=== PATIENT | male | born 1960 | race Caucasian/White ===

== ENCOUNTER → 2019-01-20 | Day surgery (SDC) | payer BC ==
[~2019-01-20] MED LIST: Buffered Lidocaine 1% SYRIN* 1 ML/SYRINGE INTRADERM ONE; Bupivacaine 0.25% SDV PF* 10 ML VIAL INJ ONE; Dexamethasone IV* 4 MG/ML 1 ML (4 MG) IV SLOW PU ONE; Dexamethasone IV* 4 MG/ML 1 ML (4 MG) ONE; DiMENhydriNATE IV* 50 MG/ML VIAL IV PUSH PRN; EPHEDrine (Pressors)* 50 MG/ML VIAL ONE; Famotidine IV* 10 MG/ML 2 ML (20 mg) IV ONE; Famotidine IV* 10 MG/ML 2 ML (20 mg) ONE; Lactated Ringers 1000 ML Bag* 1,000 ML IV SCH; Levalbuterol 0.63MG/3ML NEB* UNIT OF USE INH ONE; Lidocaine 1% INJ* 10 MG/ML 30 ML SDV ONE; Lidocaine 2% PF * 5 ML VIAL ONE; Metoprolol Tartrate IV* 1 MG/ML 5 ML VIAL ONE; Midazolam* 1 MG/ML 5 ML VIAL (5 MG) ONE; Naloxone* 0.4 MG/ML 1 ML VIAL IV PRN; Ondansetron INJ* 2 MG/ML VIAL IV PRN; Ondansetron INJ* 2 MG/ML VIAL ONE; Phenylephrine 40 MCG/ML SYRINGE ONE; Propofol* 10 MG/ML 20 ML BTL ONE; Scopolamine 1.5 mg* PATCH TRANSDERM PRN; Succinylcholine* 20 MG/ML 10 ML VIAL ONE; fentaNYL* 50 MCG/ML 2 ML VIAL (100 MCG VIAL) ONE; fentaNYL* 50 MCG/ML 5 ML VIAL (250 MCG VIAL) ONE
[2019-01-20] MEDS: fentaNYL* 50 MCG/ML 2 ML VIAL (100 MCG VIAL) IV PRN ×2 (13:22→13:28)
--- NOTE | 2019-01-20 17:05 | OP ---
CC: Dr. Zenon Walker * DATE OF OPERATION: 01/20/19 - [facility] DATE OF : 64 SERVICE: General Surgery. ATTENDING SURGEON: Diana Miranda MD NET COORDINATOR: Luci Hutchins NP ANESTHESIOLOGIST: Dr. Faheem Hernandez. ANESTHESIA: General endotracheal anesthesia. PRE-OP DIAGNOSIS: Graves disease. POST-OP DIAGNOSIS: Graves disease. OPERATIVE PROCEDURE: Total thyroidectomy and left lower parathyroid autotransplantation. ESTIMATED BLOOD LOSS: 100 cc. SPECIMENS: Right thyroid lobe, left thyroid lobe. INDICATIONS FOR SURGERY: Mr. Ocasio is a very pleasant 58-year-old gentleman with a history of pulmonary emboli (currently on a Xarelto), Klinefelter syndrome, and a longstanding history of Graves disease and Graves orbitopathy. Given the worsening of his ocular disease and need to stabilize his thyroid disease prior to performing eye surgery, he gave informed consent for a total thyroidectomy. He understood the risks included, but were not limited to bleeding, infection, injury to nearby structures including the recurrent laryngeal nerve, the possibility of permanent hypoparathyroidism, and he wished to proceed. DESCRIPTION OF PROCEDURE: The patient was brought back to the operating room and placed on the operating table in a supine position. Sequential compression devices were placed on the bilateral lower extremities for DVT prophylaxis. No antibiotics were administered. General endotracheal anesthesia was induced. The electrodes for the nerve monitor were attached. A time-out was performed verifying the patient's name, MR number, and the procedure to be performed and then approximately 15 cc of 0.25% Marcaine and 1% lidocaine mixed was administered into the subcutaneous tissue of the anterior neck for local anesthesia. Next, the neck was prepped and draped in normal sterile fashion. Prior to beginning the procedure, a second time-out was performed verifying the patient's name, MR number, and the procedure to be performed. Next, an approximately 5 cm incision was made in the anterior neck in a natural crease line approximately 3 fingerbreadths above the sternal notch. The skin was divided down to the subcutaneous tissue. The platysma was divided and then the inferior and superior platysmal flaps were developed. The median raphe between the strap muscles was identified and the strap muscles were retracted laterally off of the isthmus of the thyroid. The isthmus was divided at the midline off the trachea, and once this was done, attention was turned towards the right thyroid lobe for its removal. The medial attachments to the trachea were divided and the space of Reeve's between the cricothyroid muscle and the upper pole was developed. Next, the space lateral to the right thyroid lobe was developed bluntly. The middle thyroid vein was identified and divided with LigaSure, and then the superior pole vessels were taken down using combination of 2-0 silk sutures and LigaSure. The patient had a very enlarged, fibrotic and hypervascular thyroid. Notably, the upper lobe extended quite superiorly into the neck and was taken down with some difficulty. Next, the thyroid was then rotated medially and anteriorly out of the neck in order to identify the recurrent laryngeal nerve. The right recurrent laryngeal nerve was identified both visually and with the nerve monitor. It was dissected out until its insertion point at the cricothyroid muscle. After this was identified with some great difficulty given again how large and fibrotic and immobile the thyroid was, the thyroid was taken off the trachea using the LigaSure and electrocautery. The right lower parathyroid was identified and preserved on the pedicle. The right upper parathyroid was not identified definitively; however, the right thyroid lobe was examined on the back table and there were no identifiable parathyroid on the thyroid. Therefore, the upper pole was marked and was taken off the table as specimen. Next, attention was turned towards the left thyroid lobe. In a similar fashion , the medial attachments to the trachea were divided using LigaSure. The space of Reeve's was developed. The space lateral to the left thyroid lobe was developed bluntly and then the middle thyroid vein was divided. Once this was done, the superior pole vessels were taken down using a combination of 2-0 silk sutures and LigaSure. Similar to the right side, the upper pole was very large and contained nodules and extended superiorly up into the neck. Once this was done, the left thyroid lobe was rotated medially and anteriorly out of the neck and then the recurrent laryngeal nerve was identified, its entire course was traced out up until its insertion point at the cricothyroid muscle. A left lower parathyroid gland was identified. Given its location, it was not able to be preserved on the pedicle; therefore, it was removed from the thyroid lobe. A small portion was sent to pathology to confirm that it was indeed a parathyroid. Once this was confirmed, it was placed in saline for later autotransplantation. Next, with great care, the left thyroid lobe was taken off the trachea using a combination of LigaSure and electrocautery with care to avoid the recurrent laryngeal nerve. Once this was done, the upper pole was marked, it was examined carefully, and there were no other parathyroids identified on specimen. Next, careful hemostasis was obtained in both the lateral necks. Of note, the left upper parathyroid was also not definitively identified, but again it was not noted on the specimen. Tisseel was placed into the lateral cavities, and then once this was done, the strap muscles were reapproximated using 4-0 Vicryl sutures and then in the very lateral right strap muscle, a small pocket was made, and the left lower parathyroid gland was slightly macerated and placed into the pocket and the pocket was closed using a 4-0 Vicryl suture. After this autotransplantation was complete, the platysmal muscle was reapproximated using interrupted 4-0 Vicryl sutures and then the skin was closed using a running 5-0 Prolene suture. Sterile dressing was then placed. The patient's anesthesia was reversed and he was taken to the PACU in stable condition. At the end of case, all counts were correct and I was present during the entirety of the case. [id number]/[facility] #: [id number]
[2019-01-20 17:40] VITALS: BP 129/96
== END | disposition home or self-care (01) ==
LOC: OR 05:31
PROVIDERS: ATTEND Surgery
DX: E05.00 Thyrotoxicosis with diffuse goiter without thyrotoxic crisis or storm (principal); J45.909 Unspecified asthma, uncomplicated; Z86.718 Personal history of other venous thrombosis and embolism; Z79.01 Long term (current) use of anticoagulants; E66.9 Obesity, unspecified; Z86.711 Personal history of pulmonary embolism
CPT/HCPCS: 88305; 88307; C1776; J0330; J1100; J2250; J2405; J2704; J3010; J3490